=== PATIENT | male | born 1995 | race Caucasian/White ===

== ENCOUNTER 2019-03-12 15:36 | Emergency (ER) | payer SELFPAY ==
--- NOTE | 2019-03-12 16:20 | EDM.PDOC ---
ED HPI GENERAL MEDICAL PROBLEM - General Chief Complaint: General Stated Complaint: AHCES IN LEGS, RASH Time Seen by Provider: 03/12/19 16:05 Source of Information: Reports: Patient History Limitations: Reports: No Limitations - History of Present Illness INITIAL COMMENTS - FREE TEXT/NARRATIVE: HISTORY AND PHYSICAL: History of present illness: Patient is a 23-year-old male presents to the ED today with his mother for concern of rash to his upper extremities and lower extremities 2 days patient states the rash isn't particularly only achieved also not painful. Patient states he also has a generalized ache in his legs but not a specific area and without injury. Patient states that [place] the [place] and is unsure if he was exposed to any bugs there. Patient states he has not had a rash like this before. Patient states he does feel more tired and run down but denies any other symptoms. Patient denies any health history. Patient denies fever, chills, chest pain, shortness of breath, or cough. Denies headache, neck stiff ness, change in vision, syncope, or near syncope. Denies nausea, vomiting, abdominal pain, diarrhea, constipation, or dysuria. Has not noted any blood in urine or stool. Patient has been eating and drinking appropriately. Review of systems: As per history of present illness and below otherwise all systems reviewed and negative. Past medical history: As per history of present illness and as reviewed below otherwise noncontributory. Surgical history: As per history of present illness and as reviewed below otherwise noncontributory. Social history: See social history for further information Family history: As per history of present illness and as reviewed below otherwise noncontributory. Physical exam: General: Patient is alert, oriented, and in no acute distress. Patient sitting comfortably on exam table. HEENT: Atraumatic, normocephalic, pupils equal and reactive bilaterally, negative for conjunctival pallor or scleral icterus, mucous membranes moist, TMs normal bilaterally, throat clear, neck supple, nontender, trachea midline. No drooling or trismus noted. No meningeal signs. No hot potato voice noted. Lungs: Clear to auscultation, breath sounds equal bilaterally, chest nontender. Heart: S1S2, regular rate and rhythm without overt murmur Abdomen: Soft, nondistended, nontender. Negative for masses or hepatosplenomegaly. Negative for costovertebral tenderness. Pelvis: Stable nontender. Genitourinary: Deferred. Rectal: Deferred. Skin: There are erythematous patches of various sizes on patient's lower extremities and upper extremities. This spares the trunk, hands, feet, face, groin, and back. Extremities: Atraumatic, negative for cords or calf pain. Neurovascular unremarkable. Neuro: Awake, alert, oriented. Cranial nerves II through XII unremarkable. Cerebellum unremarkable. Motor and sensory unremarkable throughout. Exam nonfocal. Notes: Discussed the importance for follow-up with primary care provider. Voices understanding and is agreeable to plan of care. Denies any further questions or concerns at this time. Diagnostics: CBC, CMP, UA, strep, mono, CPK Therapeutics: None Prescription: Medrol dose pack Impression: Dermatitis Medical screening exam Plan: 1. Avoid triggers. Continue to monitor for possible exposures/triggers/foods. 2. While symptomatic continue to routinely take Benadryl. Take the Medrol dose pack as prescribed. 3. You may use topical calamine lotion, cool tempid oatmeal baths, Aveeno bath/ lotions. 4. Please follow up with your Primary care doctor as discussed. Return to the ED as needed and as discussed. Definitive disposition and diagnosis as appropriate pending reevaluation and review of above. Bilateral Leg Pain Score (Numeric/FACES): 8 - Related Data Allergies Allergy/AdvReac Type Severity Reaction Status Date / Time No Known Allergies Allergy Verified 03/12/19 16:09 Home Meds: Home Meds . [No Known Home Meds] 03/12/19 [History] Past Medical History - Infectious Disease History Infectious Disease History: Reports: None - Past Surgical History HEENT Surgical History: Reports: Eye Surgery Neurological Surgical History: Reports: Other (See Below) Other Neurological Surgeries/Procedures: craniosynostosis Social & Family History - Family History Family Medical History: Noncontributory - Tobacco Use Smoking Status *Q: Never Smoker Second Hand Smoke Exposure: No - Caffeine Use Caffeine Use: Reports: Coffee - Recreational Drug Use Recreational Drug Use: No ED ROS GENERAL - Review of Systems Review Of Systems: ROS reveals no pertinent complaints other than HPI. ED EXAM, GENERAL - Physical Exam Exam: See Below (see dictation) Course - Vital Signs Last Recorded V/S: Last Vital Signs Temp 37.2 C 03/12/19 16:09 Pulse 94 03/12/19 16:09 Resp 16 03/12/19 16:09 BP 147/79 H 03/12/19 16:09 Pulse Ox 99 03/12/19 16:09 - Orders/Labs/Meds Orders: Active Orders 24 hr Category Date Time Status STREP SCRN A RAPID W CULT CONF [RM] Stat Lab 03/12/19 16:48 Received UA RFX RASHIDA AND CULT IF INDIC [URIN] Stat Lab 03/12/19 16:12 Stop Req Labs: Laboratory Tests 03/12/19 03/12/19 03/12/19 Range/Units 16:23 16:23 16:23 WBC 5.25 (4.0-11.0) K/uL RBC 5.07 (4.50-5.90) M/uL Hgb 15.3 (13.0-17.0) g/dL Hct 44.6 (38.0-50.0) % MCV 88.0 (80.0-98.0) fL MCH 30.2 (27.0-32.0) pg MCHC 34.3 (31.0-37.0) g/dL RDW Std Deviation 41.1 (28.0-62.0) fl RDW Coeff of Gael 13 (11.0-15.0) % Plt Count 166 (150-400) K/uL MPV 9.10 (7.40-12.00) fL Neut % (Auto) 62.1 (48.0-80.0) % Lymph % (Auto) 22.9 (16.0-40.0) % [place] % (Auto) 13.3 (0.0-15.0) % Eos % (Auto) 1.3 (0.0-7.0) % Baso % (Auto) 0.4 (0.0-1.5) % Neut # (Auto) 3.3 (1.4-5.7) K/uL Lymph # (Auto) 1.2 (0.6-2.4) K/uL [place] # (Auto) 0.7 (0.0-0.8) K/uL Eos # (Auto) 0.1 (0.0-0.7) K/uL Baso # (Auto) 0.0 (0.0-0.1) K/uL Nucleated RBC % 0.0 /100WBC Nucleated RBCs # 0 K/uL Sodium 136 (136-148) mmol/L Potassium 3.7 (3.5-5.1) mmol/L Chloride 98 (98-107) mmol/L Carbon Dioxide 27.9 (21.0-32.0) mmol/L BUN 12 (7.0-18.0) mg/dL Creatinine 1.2 (0.8-1.3) mg/dL Est Cr Clr Drug Dosing 92.63 mL/min Estimated GFR (MDRD) > 60.0 ml/min Glucose 112 H (74-106) mg/dL Calcium 9.7 (8.5-10.1) mg/dL Total Bilirubin 0.8 (0.2-1.0) mg/dL AST 24 (15-37) IU/L ALT 34 (14-63) IU/L Alkaline Phosphatase 68 (46-116) U/L Creatine Kinase 86 (26-308) U/L Total Protein 7.9 (6.4-8.2) g/dL Albumin 3.6 (3.4-5.0) g/dL Globulin 4.3 H (2.6-4.0) g/dL Albumin/Globulin Ratio 0.8 L (0.9-1.6) Monoscreen NEGATIVE (NEG) Departure - Departure Time of Disposition: 17:07 Disposition: Home, Self-Care 01 Clinical Impression: Dermatitis - Discharge Information Referrals: PCP,Unknown [Primary Care Provider] - Forms: ED Department Discharge Additional Instructions: The following information is given to patients seen in the emergency department who are being discharged to home. This information is to outline your options for follow-up care. We provide all patients seen in our emergency department with a follow-up referral. The need for follow-up, as well as the timing and circumstances, are variable depending upon the specifics of your emergency department visit. If you don't have a primary care physician on staff, we will provide you with a referral. We always advise you to contact your personal physician following an emergency department visit to inform them of the circumstance of the visit and for follow-up with them and/or the need for any referrals to a consulting specialist. The emergency department will also refer you to a specialist when appropriate. This referral assures that you have the opportunity for follow-up care with a specialist. All of these measure are taken in an effort to provide you with optimal care, which includes your follow-up. Under all circumstances we always encourage you to contact your private physician who remains a resource for coordinating your care. When calling for follow-up care, please make the office aware that this follow-up is from your recent emergency room visit. If for any reason you are refused follow-up, please contact the Emergency Department at and asked to speak to the emergency department charge nurse. Primary Care [address] [place] [address] [facility] [address] [place] [id number] 1. Avoid triggers. Continue to monitor for possible exposures/triggers/foods. 2. While symptomatic continue to routinely take Benadryl. Take the Medrol dose pack as prescribed. 3. You may use topical calamine lotion, cool tempid oatmeal baths, Aveeno bath/ lotions. 4. Please follow up with your Primary care doctor as discussed. Return to the ED as needed and as discussed. - My Orders Last 24 Hours: My Active Orders 03/12/19 16:12 UA RFX RASHIDA AND CULT IF INDIC [URIN] Stat 03/12/19 16:48 STREP SCRN A RAPID W CULT CONF [RM] Stat - Assessment/Plan Last 24 Hours: My Active Orders 03/12/19 16:12 UA RFX RASHIDA AND CULT IF INDIC [URIN] Stat 03/12/19 16:48 STREP SCRN A RAPID W CULT CONF [RM] Stat
[2019-03-12 16:53] LABS: CHLORIDE,CL 98 mmol/L (98-107); SODIUM,NA 136 mmol/L (136-148)
== END 2019-03-12 17:27 | disposition home or self-care (01) ==
LOC: MW.ED 15:36
DX: L30.9 Dermatitis, unspecified (principal)
CPT/HCPCS: 36415; 80053; 82550; 85025; 86308; 87081; 87880-QW; 99283